=== PATIENT | female | born 1995 | race Two or more races ===

== ENCOUNTER → 2024-06-21 09:09 | Outpatient (REF) | payer OTHER, SELFPAY | LOC: WDC 09:09 | PROVIDERS: ATTENDING PHYSICIAN Nurse Practitioner Adult Health; FAMILY PHYSICIAN Family Medicine | DX: N63.10 Unspecified lump in the right breast, unspecified quadrant (principal); N63.11 Unspecified lump in the right breast, upper outer quadrant | CPT/HCPCS: 76642 ==

== ENCOUNTER → 2024-08-20 07:40 | Outpatient (REF) | payer OTHER, SELFPAY | LOC: RAD 07:40 | PROVIDERS: ATTENDING PHYSICIAN Family Medicine | DX: R19.09 Other intra-abdominal and pelvic swelling, mass and lump (principal) | CPT/HCPCS: 76882 ==